=== PATIENT | female | born 1995 | race Caucasian/White ===

== ENCOUNTER 2019-04-30 18:45 | Emergency (ER) | payer OTHER ==
[~2019-04-30] VITALS: Ht 160 cm; Wt 56.2 kg
[2019-04-30 18:45] VITALS: BP 126/103
== END 2019-04-30 19:23 | disposition home or self-care (01) ==
LOC: ER 18:47
DX: K08.89 Other specified disorders of teeth and supporting structures (principal); Z88.8 Allergy status to other drugs, medicaments and biological substances